=== PATIENT | female | born 1940 | race Caucasian/White ===

== ENCOUNTER 2017-07-23 12:53 | Inpatient (IN) ==
[2017-07-23] MEDS ORDERED: Naloxone 0.4 MG/ML INJ IVP PRN (16:50)
[2017-07-23] MEDS ORDERED: Ondansetron 4 MG/2 ML VIAL IVP PRN (16:50)
[2017-07-23] MEDS ORDERED: *HR* Heparin 5,000 UNIT/ML VIAL IVP ONE (16:53)
[2017-07-23] MEDS ORDERED: *HR* Heparin 5,000 UNIT/ML VIAL IVP PRN (16:53)
--- NOTE | 2017-07-23 17:10 | Internal Med History&Physical ---
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 continue tele monitoring follow up 2D echo Qualifiers: Pulmonary embolism type: other Chronicity: acute Acute cor pulmonale presence: without acute cor pulmonale Qualified Code(s): I26.99 - Other pulmonary embolism without acute cor pulmonale (2) Elevated troponin Current visit: Yes Status: Acute likely secondary to acute PE continue to monitor serial TNI f/u 2D echo (3) Hypertension Current visit: Yes Status: Chronic Initially noted to be hypotensive hold antihypertensive medications at this time closely monitor BP currently asymptomatic Qualifiers: Hypertension type: essential hypertension Qualified Code(s): I10 - Essential (primary) hypertension (4) DVT prophylaxis Current visit: Yes Status: Acute anticoagulated with heparin gtt (5) Morbid obesity with BMI of 40.0-44.9, adult Current visit: Yes Status: Chronic (6) Hypokalemia Current visit: Yes Status: Acute K supplemented continue to monitor electrolytes and replace as needed Internal Medicine - H&P: HPI Chief complaint: transfer from [facility] for shortness of breath, elevated TNI Admitted From: Intrahospital Transfer Plans for Post Hospital Care: Home History of present illness: Ms. Farooq is a 76 year old female with PMH of HTN, HLD who presented to [facility] for evaluation of worsening shortness of breath. Her work up at [facility] was positive for elevated TNI, elevated D-dimer due to which she was transferred to [facility]. She reports of having shortness of breath for a few weeks which abruptly got worst last Tuesday. Reports of having severe exertional dyspnea that changed to dyspnea at rest last night associated with chest pain localized to left breast which prompted her visit to the ER. She denies any history of CHF, DVT, or PE. No recent travel history reported. She received a dose of therapeutic dose lovenox, aspirin, and nitroglycerin TP prior to her transfer to [facility]. Currently she is resting comfortably in bed and saturating well on nasal cannula. Denies any chest pain at this time, however states the pain is intermittent in nature. Denies any cough, fever, or recent URI. Social history: Former smoker (quit 20years ago) Code status: Full code Past Med Surg Social Fam HX - Past Medical History Medical history: arthritis, hyperlipidemia, hypertension, other Psychiatric history: no psych history - Past Surgical History Surgical History: hip replacement, other - Social History Smoking Status: Former smoker Smokeless Tobacco Status: No Alcohol use: none Drug use: none - Family History Mother Adopted: [place]: Eusebia Soto Family Member Ethnicity: Non- Living Status: Age at : 75 Cause of : Brain Tumor Hx Family Cardiac Disorders: No Hx Family Respiratory Disorders: No Hx Family Cancer: No Hx Family GI Disorders: No Hx Family Genitourinary Disorders: No Hx Family Endocrine Disorder: No Hx Family Musculoskeletal Disorders: No Hx Family Neuromuscular Disorders: No Hx Family Neurologic Disorders: Yes (TIA) Hx Family HEENT Disorders: No Hx Family Autoimmune Disorders: No Hx Family Reproductive Disorders: No Hx Family Psychosocial Disorders: No Hx Family Medical Disorders: No Internal Medicine - H&P: Meds Furosemide [Lasix] 40 mg PO DAILY 07/23/17 [History] Lisinopril/Hydrochlorothiazide [Zestoretic 10-12.5 mg Tablet] 1 each PO DAILY [History] Lovastatin [Altoprev] 40 mg PO DAILY 07/23/17 [History] Potassium Chloride [Klor-Con 10] 10 meq PO DAILY 07/23/17 [History] 3 Allergy/AdvReac Type Severity Reaction Status Date / Time No Known Allergies Allergy Verified 07/23/17 10:14 All Systems PM: A 10-system review of systems was performed and is negative for pertinent findings except as documented above in the HPI. - Constitutional Vitals: Temp Pulse Resp BP Pulse Ox 97.4 F L 77 16 84/53 94 07/23/17 14:52 07/23/17 14:52 07/23/17 14:52 07/23/17 14:52 07/23/17 14:52 General appearance: Present: A&O X 3, morbidly obese, no acute distress, answers questions appropriately - Head Head exam: Present: atraumatic, normocephalic - Eye Eye exam: Present: conjuntiva pink, sclera anicteric - Respiratory Respiratory exam: Present: decreased breath sounds. Absent: respiratory distress, wheezes - Cardiovascular Cardiovascular exam: Present: RRR, +S1, +S2. Absent: diastolic murmur, gallop, rubs, systolic murmur - GI/Abdominal GI/Abdominal exam: Present: normal bowel sounds, soft, no peritoneal signs. Absent: distended, tenderness - Extremities Exam Extremities exam: Present: warm, radial pulses palpable and symmetrical. Absent : calf tenderness, cyanotic, pedal edema - Neurological Exam Neurological exam: Present: alert, oriented X3 - Psychiatric Psychiatric exam: Present: normal affect, normal mood
[2017-07-23] MEDS ORDERED: 0.9 % Sodium Chloride 250 ML IVC PRN (17:33)
[2017-07-23 17:53] LABS: Hematocrit 41.8 % (35.3-44.9); Hemoglobin 14.2 g/dL (11.5-15.4); Mean Corpuscular Hemoglobin 32.2 pg (28.0-33.3); Mean Corpuscular Volume 94.8 fL (83.0-100.0); Mean Platelet Volume 10.7 fL (9.4-12.4); Platelet Count 168 K/mcL (140-400); Red Blood Count 4.41 M/mcL (3.82-4.97); Red Cell Distribution Width 12.8 % (11.5-14.5)
[2017-07-23 17:58] LABS: INR 1.2; Prothrombin Time 12.5 Seconds (9.4-12.1)
[2017-07-23 18:00] LABS: Activated Partial Thrombo Time 34.4 Seconds (26.0-36.0)
[2017-07-23] MEDS: Heparin 25,000 UNIT/500 ML D5W 25,000 UNIT/500 ML MLS IVC SCH (18:09)
[2017-07-23] MEDS: *HR* Heparin 5,000 UNIT/ML VIAL IVP PRN (18:12)
[2017-07-23] MEDS: *HR* Morphine 2 MG/ML SYRINGE IVP PRN (18:39)
[2017-07-23] MEDS: *HR* HYDROcodone/Acet 5/325 mg TABLET PO PRN (20:45)
[2017-07-24 00:23] LABS: Basophils # 0.1 K/mcL (0.0-0.2); Basophils % 0.5 %; Eosinophils # 0.2 K/mcL (0.0-0.6); Eosinophils % 1.5 %; Hematocrit 39.3 % (35.3-44.9); Hemoglobin 13.2 g/dL (11.5-15.4); Immature Granulocytes % 0.3 % (0-4); Immature Platelets 5.3 % (1.1-6.1); Lymphocytes # 4.3 K/mcL (0.6-4.6); Lymphocytes % 39.4 %; Mean Corpuscular HGB Conc 33.6 g/dL (31.6-35.5); Mean Corpuscular Hemoglobin 31.8 pg (28.0-33.3); Mean Corpuscular Volume 94.7 fL (83.0-100.0); Mean Platelet Volume 10.6 fL (9.4-12.4); Monocytes # 1.1 K/mcL (0.0-1.3); Monocytes % 9.9 %; Neutrophils # 5.3 K/mcL (1.6-8.9); Platelet Count 157 K/mcL (140-400); Red Blood Count 4.15 M/mcL (3.82-4.97); Red Cell Distribution Width 12.9 % (11.5-14.5); Segmented Neutrophils % 48.4 %
[2017-07-24] MEDS: *HR* HYDROcodone/Acet 5/325 mg TABLET PO PRN ×4 (00:37→20:50)
[2017-07-24 00:38] LABS: Calcium 9.3 mg/dL (8.6-10.8); Chol/HDL Ratio 3.2 (0-4.9); Phosphorous 3.5 mg/dL (2.3-4.7); Potassium 3.3 mEq/L (3.5-4.5)
[2017-07-24 01:00] LABS: Activated Partial Thrombo Time > 360.0 Seconds (26.0-36.0)
[2017-07-24 01:16] LABS: Heparin anti-factor XA UFH 1.82 IU/mL (0.30-0.70)
[2017-07-24] MEDS ORDERED: 0.9 % Sodium Chloride 500 ML IVC SCH (08:00)
[2017-07-24] MEDS ORDERED: Potassium Chloride 20 MEQ, Lidocaine 1% 2 ML in D5% in Water 250 ML IVPB ONE (08:00)
[2017-07-24 08:31] LABS: Activated Partial Thrombo Time 117.2 Seconds (26.0-36.0)
[2017-07-24 08:41] LABS: Heparin anti-factor XA UFH 1.15 IU/mL (0.30-0.70)
--- NOTE | 2017-07-24 10:20 | Internal Med Progress Note ---
Date of Encounter: 07/24/17 Time of Encounter: 09:35 - Assessment and plan (1) SHENG (acute kidney injury) Current Visit: Yes Status: Acute Assessment and plan: Likely secondary to contrast study continue to hold lasix will administer low dose IV fluids (75cc/hr x 550cc) will closely monitor renal function (2) Pulmonary embolism Current Visit: Yes Status: Acute Assessment and plan: CT chest reported bilateral PE with right heart strain awaiting 2D echo currently hemodynamically stable continue heparin gtt pain control O2 supplementation hematology evaluation requested. will obtain b/l LE venous doppler Qualifiers: Pulmonary embolism type: other Chronicity: acute Acute cor pulmonale presence: without acute cor pulmonale Qualified Code(s): I26.99 - Other pulmonary embolism without acute cor pulmonale (3) Elevated troponin Current Visit: Yes Status: Acute Assessment and plan: likely secondary to Acute PE f/u 2D echo (4) Hypertension Current Visit: Yes Status: Chronic Assessment and plan: BP within acceptable range continue home meds Qualifiers: Hypertension type: essential hypertension Qualified Code(s): I10 - Essential (primary) hypertension (5) DVT prophylaxis Current Visit: Yes Status: Acute Assessment and plan: anticoagulated with heparin gtt (6) Morbid obesity with BMI of 40.0-44.9, adult Current Visit: Yes Status: Chronic (7) Hypokalemia Current Visit: Yes Status: Acute Assessment and plan: K supplemented continue to monitor electrolytes and replace as needed - Subjective Interval history: Patient seen and examined with family present at bedside. Patient reports of feeling significantly better compared to previous day. No chest pain reported at this time Vitals within acceptable range will continue heparin gtt today and switch to oral anticoagulant in am awaiting improvement of renal function prior to initiating NOAC. - Constitutional Vitals: Temp Pulse Resp BP Pulse Ox 97.9 F 72 18 136/75 96 07/24/17 04:41 07/24/17 04:41 07/24/17 04:41 07/24/17 04:41 07/24/17 04:41 General appearance: Present: A&O X 3, morbidly obese, no acute distress, answers questions appropriately - Head Head exam: Present: atraumatic, normocephalic - Eye Eye exam: Present: conjuntiva pink, sclera anicteric - Respiratory Respiratory exam: Present: CTAB. Absent: accessory muscle use, rales, rhonchi, wheezes - Cardiovascular Cardiovascular exam: Present: RRR, +S1, +S2. Absent: diastolic murmur, gallop, rubs, systolic murmur - GI/Abdominal GI/Abdominal exam: Present: normal bowel sounds, soft, no peritoneal signs. Absent: distended, tenderness - Extremities Exam Extremities exam: Present: warm, radial pulses palpable and symmetrical. Absent : calf tenderness, cyanotic, pedal edema - Neurological Exam Neurological exam: Present: alert, oriented X3 - Psychiatric Psychiatric exam: Present: normal affect, normal mood Internal Medicine: Result - Labs CBC & Chem 7: 07/24/17 00:15 07/24/17 00:15 Labs: Short CBC 07/23/17 07/24/17 Range/Units 17:40 00:15 WBC 12.0 H 10.9 (4.3-11.1) K/mcL Hgb 14.2 13.2 (11.5-15.4) g/dL Hct 41.8 39.3 (35.3-44.9) % Plt Count 168 157 (140-400) K/mcL Neutrophils # 5.3 (1.6-8.9) K/mcL BMP 07/24/17 00:15 Sodium 140 Potassium 3.3 L Chloride 103 Carbon Dioxide 29 BUN 22 H Creatinine 1.17 H Glucose 124 H Calcium 9.3 Cardiac Enzymes 07/23/17 07/23/17 Range/Units 17:40 22:20 Troponin I 0.56 H* 0.54 H* (0-0.03) ng/mL - ABG Interpretation ABG results: PT/INR, D-dimer PT 12.5 Seconds (9.4-12.1) H 07/23/17 17:40 - Impressions Impressions Chest CTA 07/23/17 16:52 IMPRESSION: 1. Bilateral pulmonary embolic disease including distal main right pulmonary emboli. Evidence of right heart strain with flattening of the interventricular septum and increased size of the right ventricle. 2. No acute pulmonary findings. 3. Moderate atherosclerotic change in the aorta and coronary circulation. Findings called to Dr. Bazan on 07/23/2017 at 6:10 p.m. D/ / 07/23/2017 18:14:38 Ronak Hardin MD / rosita Interpreting Provider: Ronak Hardin MD Consult Discharge Plan - Plan Referrals: Lee Allen MD [Primary Care Provider] -
[2017-07-24] MEDS ORDERED: Perflutren Lipid Microsphere 1.3 ML in 0.9 % Sodium Chloride 8.7 ML IVP ONE (16:14)
[2017-07-24] MEDS: Heparin 25,000 UNIT/500 ML D5W 25,000 UNIT/500 ML MLS IVC SCH (16:24)
[2017-07-24] MEDS: *HR* Heparin 5,000 UNIT/ML VIAL IVP PRN (21:02)
[2017-07-25] MEDS: *HR* HYDROcodone/Acet 5/325 mg TABLET PO PRN ×2 (01:42→20:59)
[2017-07-25 03:31] LABS: Basophils # 0.1 K/mcL (0.0-0.2); Basophils % 0.7 %; Eosinophils # 0.2 K/mcL (0.0-0.6); Eosinophils % 2.4 %; Hematocrit 36.4 % (35.3-44.9); Immature Granulocytes % 0.5 % (0-4); Lymphocytes # 3.7 K/mcL (0.6-4.6); Lymphocytes % 39.9 %; Mean Corpuscular Hemoglobin 31.7 pg (28.0-33.3); Mean Corpuscular Volume 96.3 fL (83.0-100.0); Mean Platelet Volume 11.1 fL (9.4-12.4); Monocytes % 10.4 %; Neutrophils # 4.3 K/mcL (1.6-8.9); Platelet Count 139 K/mcL (140-400); Red Blood Count 3.78 M/mcL (3.82-4.97); Red Cell Distribution Width 13.2 % (11.5-14.5); Segmented Neutrophils % 46.1 %
[2017-07-25 03:46] LABS: BUN/Creatinine Ratio 22 (6-26); Blood Urea Nitrogen 23 mg/dL (7-20); Calcium 8.4 mg/dL (8.6-10.8); Carbon Dioxide 29 mEq/L (19-29); Chloride 106 mEq/L (98-109); Glucose 120 mg/dL (70-99); Magnesium 1.8 mg/dL (1.6-2.6); Osmolality,Calculated 297 (280-300); Phosphorous 3.5 mg/dL (2.3-4.7); Potassium 3.2 mEq/L (3.5-4.5); Sodium 141 mEq/L (136-145); eGFR For African Americans > 60 (> 60); eGFR For Non-African Americans 52 (> 60)
[2017-07-25 03:58] LABS: Activated Partial Thrombo Time > 360.0 Seconds (26.0-36.0)
[2017-07-25 04:11] LABS: Heparin anti-factor XA UFH 1.47 IU/mL (0.30-0.70)
[2017-07-25] MEDS: *HR* Morphine 2 MG/ML SYRINGE IVP PRN (04:17)
--- NOTE | 2017-07-25 07:35 | Oncology Inp Consult Note ---
Date of Encounter: 07/25/17 Time of Encounter: 07:00 Assessment and Plan (1) Pulmonary embolism Status: Acute Assessment and plan: Ms. 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 She is placed on a heparin drip and clinically she is responding. Regarding long-term anticoagulation, given her obesity, warfarin would be our best option. I placed her on 5 mg once daily starting tonight. I did explain to the patient that if she feels well, we can transition her to Lovenox 1 mg/kg twice a day (120 mg bid) during her transition. I would recommend she established care with the Coumadin clinic. I would recommend a minimum of 6 months of anticoagulation. Given her prior event, one could consider lifelong therapy. Thrombophilia testing is not indicated to current. Goal INR is 2-3 I will establish care in my office in 3-4 weeks for follow-up. We will otherwise sign off. Do not hesitate to call with concerns or questions. Qualifiers: Pulmonary embolism type: other Chronicity: acute Acute cor pulmonale presence: without acute cor pulmonale Qualified Code(s): I26.99 - Other pulmonary embolism without acute cor pulmonale - Data of Consult Requesting Physician: Karli Bazan MD Primary Care Provider: Lee Allen MD - Consult Narrative Reason for consult: New PE History of present illness: Ms. Farooq is a 76 year old female with a prior history of right leg DVT following total hip arthroplasty. This occurred while on Coumadin. She presented to the [place] ER with acute onset chest pain and severe dyspnea on exertion. CT imaging 07/23/2017 revealed bilateral pulmonary embolism but no other significant finding. She is transferred to the [facility] where she has been placed on a heparin drip and a consult has been placed. Regarding her history of thrombosis, she had one event following a total hip arthroplasty. This sounds as though it occurred while on Coumadin initially. She does have a sister who had a history of DVT. No offspring with history of DVT or premature loss that she can recall. She tolerated Coumadin well. She has had recent mammography but has not had a colonoscopy for over 10 years. She currently denies any bleeding symptoms epistaxis, hemoptysis, hematemesis or melena. She has not been moving around much since being hospital twice. She does have constipation. Past Med Surg Social Fam HX - Past Medical History Medical history: arthritis, hyperlipidemia, hypertension, other Psychiatric history: no psych history - Past Surgical History Surgical History: hip replacement, other - Social History Smoking Status: Former smoker Smokeless Tobacco Status: No Alcohol use: none Drug use: none - Family History Mother Adopted: [place]: Eusebia Soto Family Member Ethnicity: Non- Living Status: Age at : 75 Cause of : Brain Tumor Hx Family Cardiac Disorders: No Hx Family Respiratory Disorders: No Hx Family Cancer: No Hx Family GI Disorders: No Hx Family Genitourinary Disorders: No Hx Family Endocrine Disorder: No Hx Family Musculoskeletal Disorders: No Hx Family Neuromuscular Disorders: No Hx Family Neurologic Disorders: Yes (TIA) Hx Family HEENT Disorders: No Hx Family Autoimmune Disorders: No Hx Family Reproductive Disorders: No Hx Family Psychosocial Disorders: No Hx Family Medical Disorders: No Medications and Allergies Furosemide [Lasix] 40 mg PO DAILY 07/23/17 [History] Lisinopril/Hydrochlorothiazide [Zestoretic 10-12.5 mg Tablet] 1 tab PO DAILY [History] Potassium Chloride [Klor-Con 10] 10 meq PO DAILY 07/23/17 [History] Lovastatin 40 mg PO HS 07/24/17 [History] Naproxen Sodium [Aleve] 220 mg PO Q8H PRN 07/24/17 [History] 3 Allergy/AdvReac Type Severity Reaction Status Date / Time No Known Allergies Allergy Verified 07/24/17 15:36 All systems: reviewed and no additional remarkable complaints except as stated Constitutional: Present: as per HPI Eyes: Present: as per HPI Ears: Present: as per HPI Nose, mouth and throat: Present: as per HPI Cardiovascular: Present: chest pain with activity, edema Respiratory: Present: dyspnea on exertion Gastrointestinal: Present: as per HPI Musculoskeletal: Present: as per HPI Integumentary: Present: as per HPI Neurological: Present: as per HPI Psychiatric: Present: as per HPI Oncology - Exam - Constitutional Vitals: Temp Pulse Resp BP Pulse Ox 97.3 F L 65 18 131/63 98 07/25/17 07:10 07/25/17 07:10 07/25/17 07:10 07/25/17 07:10 07/25/17 07:10 General appearance: cooperative, obese - Head Head exam: Present: atraumatic, normal inspection, normocephalic - Eye Eye exam: Present: EOMI, normal appearance, conjuntiva pink, sclera anicteric - ENT ENT exam: Present: mucous membranes moist, normal exam - Neck Neck exam: Present: full ROM, normal inspection - Respiratory Respiratory exam: Present: CTAB - Cardiovascular Cardiovascular exam: Present: RRR - GI/Abdominal GI/Abdominal exam: Present: normal bowel sounds, soft - Extremities Exam Extremities exam: Present: pedal edema - Back Exam Back exam: Present: normal inspection - Neurological Exam Neurological exam: Present: alert, CN II-XII intact, oriented X3 Oncology - Results Labs: Short CBC 07/25/17 Range/Units 03:07 WBC 9.2 (4.3-11.1) K/mcL Hgb 12.0 (11.5-15.4) g/dL Hct 36.4 (35.3-44.9) % Plt Count 139 L (140-400) K/mcL Neutrophils # 4.3 (1.6-8.9) K/mcL BMP 07/25/17 03:07 Sodium 141 Potassium 3.2 L Chloride 106 Carbon Dioxide 29 BUN 23 H Creatinine 1.03 Glucose 120 H Calcium 8.4 L CTA OF THE CHEST 07/23/2017 5:30 pm FINDINGS: Pulmonary Arteries: Pulmonary arteries are adequately opacified for evaluation. Extensive bilateral pulmonary embolic disease. On the right, emboli are present in the distal main pulmonary artery extending into the proximal segmental branches in the lower and upper lobes. On the left, emboli are present in the proximal segmental branches. There is CT evidence of right heart strain with flattening of the interventricular septum and increased size of the right ventricle compared to the left. Main pulmonary artery is normal in caliber. Mediastinum: The thoracic aorta is normal in course and caliber with moderate diffuse atherosclerotic plaque. The heart is not enlarged. Atherosclerotic calcification in the coronary circulation. No pericardial effusion. No pathologic hilar or mediastinal adenopathy. Lungs/Pleura: No acute pulmonary infiltrate. Some dependent atelectasis in the right posterior costophrenic sulcus. No consolidation or edema. No pleural fluid or pneumothorax. The central airways are patent. Upper Abdomen: Limited images of the upper abdomen are unremarkable. Soft Tissues/Bones: No acute bone or soft tissue abnormality. CT/CT angio chest IMPRESSION: 1. Bilateral pulmonary embolic disease including distal main right pulmonary emboli. Evidence of right heart strain with flattening of the interventricular septum and increased size of the right ventricle. 2. No acute pulmonary findings. 3. Moderate atherosclerotic change in the aorta and coronary circulation. Findings called to Dr. Bazan on 07/23/2017 at 6:10 p.m. Consult Discharge Plan - Plan Referrals: Lee Allen MD [Primary Care Provider] -
[2017-07-25] MEDS: Heparin 25,000 UNIT/500 ML D5W 25,000 UNIT/500 ML MLS IVC SCH (13:07)
[2017-07-25] MEDS ORDERED: GuaiFENesin Liq 200 MG/10 ML UDC PO PRN (15:26)
--- NOTE | 2017-07-25 17:31 | Internal Med Progress Note ---
<NataleePramod preciado - Last Filed: 07/25/17 17:28> Date of Encounter: 07/25/17 Time of Encounter: 17:28 - Assessment and plan (1) Pulmonary embolism Current Visit: Yes Status: Acute Assessment and plan: Submassive with evidence of right heart strain. Hemodynamically stable. Patient is currently on heparin bridging to Coumadin, possible transition to Lovenox tomorrow so the patient can complete bridging. Patient is off supplemental oxygen and does not desaturate with activity. Qualifiers: Pulmonary embolism type: other Chronicity: acute Acute cor pulmonale presence: without acute cor pulmonale Qualified Code(s): I26.99 - Other pulmonary embolism without acute cor pulmonale (2) Hypertension Current Visit: Yes Status: Chronic Assessment and plan: Stable. Continue home medications, restart home Lasix. Qualifiers: Hypertension type: essential hypertension Qualified Code(s): I10 - Essential (primary) hypertension (3) SHENG (acute kidney injury) Current Visit: Yes Status: Acute Assessment and plan: Likely multifactorial due to dehydration as well as the contrast. Kidney function is returned to baseline. Patient has good urine output. (4) Hypokalemia Current Visit: Yes Status: Acute Assessment and plan: 3.2 today. We will restart home potassium 10 mEq daily and give a one-time dose of 40 mEq this evening. - Subjective Interval history: Patient seen and examined at bedside. She has no complaints at this time. She reports chronic knee pain that is unchanged. She denies chest pain, shortness of breath, hemoptysis. - Constitutional Vitals: Temp Pulse Resp BP Pulse Ox 98.3 F 79 18 148/75 94 07/25/17 15:02 07/25/17 15:02 07/25/17 15:02 07/25/17 15:02 07/25/17 15:02 General appearance: Present: A&O X 3, morbidly obese, no acute distress, answers questions appropriately - Respiratory Respiratory exam: Present: decreased breath sounds. Absent: rales, respiratory distress, rhonchi, wheezes, tachypnea - Cardiovascular Cardiovascular exam: Present: RRR. Absent: gallop, rubs, systolic murmur - GI/Abdominal GI/Abdominal exam: Present: normal bowel sounds, soft. Absent: distended, tenderness - Extremities Exam Extremities exam: Present: pedal edema (2+), warm. Absent: tenderness - Neurological Exam Neurological exam: Present: alert, CN II-XII intact, oriented X3, no focal deficits Internal Medicine: Result - Labs CBC & Chem 7: 07/25/17 03:07 07/25/17 03:07 Labs: Short CBC 07/25/17 Range/Units 03:07 WBC 9.2 (4.3-11.1) K/mcL Hgb 12.0 (11.5-15.4) g/dL Hct 36.4 (35.3-44.9) % Plt Count 139 L (140-400) K/mcL Neutrophils # 4.3 (1.6-8.9) K/mcL BMP 07/25/17 03:07 Sodium 141 Potassium 3.2 L Chloride 106 Carbon Dioxide 29 BUN 23 H Creatinine 1.03 Glucose 120 H Calcium 8.4 L - ABG Interpretation ABG results: PT/INR, D-dimer PT 12.5 Seconds (9.4-12.1) H 07/23/17 17:40 - Impressions Impressions Echocardiogram 07/24/17 16:54 Impressions: Technically challenging study with suboptimal windows. LV systolic function appears normal in limited images provided - even with use of Definity, multiple wall segments could not be well visualized. Mild left ventricular diastolic dysfunction. RV size is normal. RV function is not well evaluated on this study - the basal segments in the apical views demonstrate normal function. Function of the mid to distal villegas are not well evaluated. Suboptimal subcostal view. No significant valvular dysfunction. Lack of significant TR gradient to estimate RVSP. Mild elevation of RA pressures - IVC is dilated with normal respiratory collapse. Left Ventricular Wall Motion: Rest Echo Findings The apex, apical inferior, mid inferior, basal inferior, apical anterior, mid anterior, basal anterior, apical septal, mid inferior septal, basal inferior septal, apical lateral, mid anterior lateral and basal anterior lateral villegas were not visualized. All other wall segments showed normal motion. Findings: Study Quality * Technically sub-optimal due to body habitus. ECG Findings * Normal sinus rhythm. Left Ventricle * Mild left ventricular diastolic dysfunction. * Definity echo contrast was used. * Unable to evaluate segmental wall motion due to technical quality. Right Ventricle * RV size is normal. Function is not well evaluated. Left Atrium * Normal left atrial size. Right Atrium * Normal right atrial size. Aortic Valve * Aortic valve not well visualized. * No aortic regurgitation. * No aortic stenosis. Mitral Valve * Mitral valve not well visualized. * No mitral regurgitation. * No mitral stenosis. Tricuspid Valve * Tricuspid valve not well visualized. * Trace tricuspid regurgitation. * Estimated RA pressure is 8 mmHg. Pulmonic Valve * Pulmonic valve is not well visualized. * No pulmonic stenosis. * No pulmonic regurgitation. Pulmonary Artery * Pulmonary artery not well visualized. Aorta * Not well visualized. Pericardium * There is no pericardial effusion present. Interatrial Septum * Interatrial septum not well evaluated. IVC * The IVC is dilated. * > 50% respiratory change - VTE Reasons for not Prescribing Prophylaxis: Not indicated-Anticoagulated or INR therapeutic Consult Discharge Plan - Plan Referrals: Lee Allen MD [Primary Care Provider] - 08/01/17 3:30 pm () Prescriptions: Enoxaparin [Lovenox] 120 mg SQ Q12HR #10 syr <Shiv Lizarraga - Last Filed: 07/25/17 18:14> Date of Encounter: 07/25/17 - Assessment and plan (1) Pulmonary embolism Current Visit: Yes Status: Acute Qualifiers: Pulmonary embolism type: other Chronicity: acute Acute cor pulmonale presence: without acute cor pulmonale Qualified Code(s): I26.99 - Other pulmonary embolism without acute cor pulmonale (2) Deep venous thrombosis of right popliteal vein Current Visit: Yes Status: Acute Qualifiers: Chronicity: acute Qualified Code(s): I82.431 - Acute embolism and thrombosis of right popliteal vein (3) Demand ischemia Current Visit: Yes Status: Acute Assessment and plan: Due to submassive PEs (4) Hypertension Current Visit: Yes Status: Chronic Qualifiers: Hypertension type: essential hypertension Qualified Code(s): I10 - Essential (primary) hypertension (5) Morbid obesity with BMI of 40.0-44.9, adult Current Visit: Yes Status: Chronic - Constitutional Vitals: Temp Pulse Resp BP Pulse Ox 98.3 F 79 18 148/75 94 07/25/17 15:02 07/25/17 15:02 07/25/17 15:02 07/25/17 15:02 07/25/17 15:02 Internal Medicine: Result - Labs CBC & Chem 7: 07/25/17 03:07 07/25/17 03:07 Labs: Short CBC 07/25/17 Range/Units 03:07 WBC 9.2 (4.3-11.1) K/mcL Hgb 12.0 (11.5-15.4) g/dL Hct 36.4 (35.3-44.9) % Plt Count 139 L (140-400) K/mcL Neutrophils # 4.3 (1.6-8.9) K/mcL BMP 07/25/17 03:07 Sodium 141 Potassium 3.2 L Chloride 106 Carbon Dioxide 29 BUN 23 H Creatinine 1.03 Glucose 120 H Calcium 8.4 L - ABG Interpretation ABG results: PT/INR, D-dimer PT 12.5 Seconds (9.4-12.1) H 07/23/17 17:40 - Attending Attestation I examined this patient and my medical decision-making was reviewed with the Resident Physician on 07/25/17. I agree with the documented findings, disposition and treatment plan as described except to the extent set forth below. Ms Farooq is currently admitted with bilateral submassive PEs and R pop DVT. She remains moderate to high risk due to potential for worsening respiratory status. Ms Farooq is feeling OK. She is off oxygen at rest. Concerned about needing oxygen when she goes (does not). Discussed possible d/c with Lovenox/coumadin. Pedro checking Lovenox. No fever or chills. Daughter at bedside. Pt to go on coumadin as well. Exam Alert. Comfortable Heart reg No wheeze Abd soft OA noted. Mucus membranes dry I/P 1. BL PE - currently on heparin drip. To start coumadin tonight. Pedro checking Lovenox for possible discharge on this med with coumadin. 2. R pop DVT 3. OA Further diagnoses and plan as above.
[2017-07-25] MEDS ORDERED: *HR* Warfarin 5 MG TABLET PO SCH ×2 (18:00)
[2017-07-25] MEDS ORDERED: Warfarin perPT PO PRN (18:00)
[2017-07-26] MEDS: *HR* HYDROcodone/Acet 5/325 mg TABLET PO PRN (01:15)
[2017-07-26 05:31] LABS: INR 1.1; Prothrombin Time 12.3 Seconds (9.4-12.1)
[2017-07-26] MEDS: Furosemide 40 MG TABLET PO SCH (08:38)
--- NOTE | 2017-07-26 08:40 | Internal Med Progress Note ---
<Enzo Pena - Last Filed: 07/26/17 10:03> Date of Encounter: 07/26/17 Time of Encounter: 08:38 - Assessment and plan (1) Pulmonary embolism Current Visit: Yes Status: Acute Assessment and plan: Patient was admitted with shortness of breath found to have bilateral pulmonary embolisms on CTA with enlarged pulmonary artery, she was started on heparin drip and demonstrated significant improvement during her inpatient stay. On admission patient had elevation of troponin 2.54 likely secondary to cardiac strain with bilateral pulmonary embolisms. Echocardiogram demonstrated left ventricular systolic function appears normal and limited images, mild left ventricle diastolic dysfunction, right ventricular size is normal. Right function is not well evaluated on this study. No significant valvular dysfunction. Lack of significant TR gradient to estimate RVSP. Doppler bilateral lower extremities demonstrates clot in right popliteal vein. Plan: - Start Lovenox 1 mg/kg every 12 hours, approved by insurance - Discontinue heparin drip - Patient will be transitioned to Coumadin, pharmacy to dose and follow-up with Coumadin clinic in the outpatient setting. - Follow up with primary care provider in the outpatient setting. Qualifiers: Pulmonary embolism type: other Chronicity: acute Acute cor pulmonale presence: without acute cor pulmonale Qualified Code(s): I26.99 - Other pulmonary embolism without acute cor pulmonale (2) Hypertension Current Visit: Yes Status: Chronic Assessment and plan: Stable. Continue home medications, restart home Lasix. Qualifiers: Hypertension type: essential hypertension Qualified Code(s): I10 - Essential (primary) hypertension (3) Hypokalemia Current Visit: Yes Status: Acute Assessment and plan: 3.2 yesterday. Continue home potassium 10 mEq daily Plan: - Recheck potassium with today's labs (4) SHENG (acute kidney injury) Current Visit: Yes Status: Acute Assessment and plan: Acute kidney injury improving since admission. GFR greater than 60 yesterday we will recheck with a.m. labs. - Subjective Interval history: Ms. Farooq 76-year-old female seen and evaluated patient bedside this morning. She is alert awake interactive in no acute distress. She does say that she gets shortness of breath with walking and has anxiety that there is a risk this could get worse if she went home. While at rest she does not have any shortness of breath denies any chest pain, palpitations, nausea vomiting diarrhea headaches blurry vision or any other concerning symptoms. She states that she has chronic edema in her bilateral lower extremities which is not changed from her baseline. - Constitutional Vitals: Temp Pulse Resp BP Pulse Ox 98.2 F 73 18 129/67 94 07/26/17 04:15 07/26/17 07:29 07/26/17 07:29 07/26/17 07:29 07/26/17 07:29 General appearance: Present: A&O X 3, morbidly obese, no acute distress, answers questions appropriately Exam: General: Patient alert, awake, oriented 3, interactive, in no acute distress HEENT: Normocephalic, atraumatic, pupils equal reactive to light, nasal cavity patent and open septum median position, oral mucosa moist, uvula midline, neck supple trachea midline no palpable lymphadenopathy, no thyromegaly. Chest: Symmetric bilateral correlating with respiratory effort, effort nonlabored. Cardiac: Regular rate and rhythm, positive S1 and S2. no bruits appreciated bilateral carotids, Radial pulses 2+ bilateral, posterior tibial and dorsal pedal pulses 2+ bilateral. Respiratory: Clear to auscultation all lung burkett Abdomen: Soft, nontender, positive bowel sounds, no palpable masses appreciated on examination Extremities: Symmetric bilateral, bilateral lower extremities with 1+ edema, patient moving all 4 extremities spontaneously. Neurologic: No focal deficits appreciated on examination. Face symmetric, muscle strength symmetric bilateral upper and lower extremities. Internal Medicine: Result - Labs CBC & Chem 7: 07/25/17 03:07 07/25/17 03:07 - ABG Interpretation ABG results: PT/INR, D-dimer PT 12.3 Seconds (9.4-12.1) H 07/26/17 05:05 - VTE Reasons for not Prescribing Prophylaxis: Not indicated-Anticoagulated or INR therapeutic Consult Discharge Plan - Plan Additional Instructions: Coagulation Clinic Instructions for Tuesday. Bring Warfarin bottle and list of home medication list including any vitamins. Bring Photo ID and Insurance information. Appointment should last 45 minutes. Office is located [facility] the [facility] of [facility]. Referrals: ANTICOAGULATION, CLINIC [Other] - 08/01/17 12:00 pm Lee Allen MD [Primary Care Provider] - 08/01/17 3:30 pm () Prescriptions: Enoxaparin [Lovenox] 120 mg SQ Q12HR #10 syr <Beni,Karli - Last Filed: 07/26/17 17:46> Date of Encounter: 07/26/17 - Assessment and plan (1) SHENG (acute kidney injury) Current Visit: Yes Status: Acute (2) Pulmonary embolism Current Visit: Yes Status: Acute Qualifiers: Pulmonary embolism type: other Chronicity: acute Acute cor pulmonale presence: without acute cor pulmonale Qualified Code(s): I26.99 - Other pulmonary embolism without acute cor pulmonale (3) Elevated troponin Current Visit: Yes Status: Acute (4) Hypertension Current Visit: Yes Status: Chronic Qualifiers: Hypertension type: essential hypertension Qualified Code(s): I10 - Essential (primary) hypertension (5) DVT prophylaxis Current Visit: Yes Status: Acute (6) Morbid obesity with BMI of 40.0-44.9, adult Current Visit: Yes Status: Chronic (7) Hypokalemia Current Visit: Yes Status: Acute - Constitutional Vitals: Temp Pulse Resp BP Pulse Ox 97.6 F 79 20 143/69 96 07/26/17 15:19 07/26/17 15:19 07/26/17 15:19 07/26/17 15:19 07/26/17 15:19 Internal Medicine: Result - Labs CBC & Chem 7: 07/26/17 11:15 07/26/17 11:15 Labs: Short CBC 07/26/17 Range/Units 11:15 WBC 9.4 (4.3-11.1) K/mcL Hgb 12.8 (11.5-15.4) g/dL Hct 38.8 (35.3-44.9) % Plt Count 172 (140-400) K/mcL Neutrophils # 5.3 (1.6-8.9) K/mcL BMP 07/26/17 11:15 Sodium 139 Potassium 3.7 Chloride 105 Carbon Dioxide 26 BUN 18 Creatinine 0.86 Glucose 102 H Calcium 9.2 - ABG Interpretation ABG results: PT/INR, D-dimer PT 12.3 Seconds (9.4-12.1) H 07/26/17 05:05 - Attending Attestation Patient is a 76-year-old female admitted for acute respiratory distress secondary to bilateral PE. She has been started on Coumadin bridging with heparin for anticoagulation. Patient's SHENG has resolved and she is to be started on Lovenox therapeutic dose twice a day instead of heparin today. Patient is hesitant to be discharged to home until her INR is therapeutic. Extensive counseling was provided to the patient and the family in regards to home management with Coumadin and Lovenox versus hospital stay. Patient willing to be discharged to home with Lovenox in a.m. Continue to monitor INR daily. Coumadin clinic appointment to be set up for Tuesday. Patient's labs and vitals reviewed. Hypophosphatemia noted, phosphorus supplemented. Patient was independently seen and examined with family present at bedside. 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 Case discussed with resident physician Edgar Pena, I agree with his documented findings, assessment, and plan, except as listed above.
[2017-07-26] MEDS: Heparin 25,000 UNIT/500 ML D5W 25,000 UNIT/500 ML MLS IVC SCH ×2 (09:42→09:45)
[2017-07-26 11:31] LABS: Basophils # 0.1 K/mcL (0.0-0.2); Basophils % 0.6 %; Eosinophils # 0.2 K/mcL (0.0-0.6); Eosinophils % 2.1 %; Hematocrit 38.8 % (35.3-44.9); Hemoglobin 12.8 g/dL (11.5-15.4); Immature Granulocytes % 0.3 % (0-4); Lymphocytes # 2.7 K/mcL (0.6-4.6); Lymphocytes % 28.1 %; Mean Corpuscular Hemoglobin 31.8 pg (28.0-33.3); Mean Corpuscular Volume 96.3 fL (83.0-100.0); Mean Platelet Volume 10.8 fL (9.4-12.4); Monocytes # 1.2 K/mcL (0.0-1.3); Monocytes % 12.3 %; Neutrophils # 5.3 K/mcL (1.6-8.9); Platelet Count 172 K/mcL (140-400); Red Blood Count 4.03 M/mcL (3.82-4.97); Red Cell Distribution Width 13.3 % (11.5-14.5); Segmented Neutrophils % 56.6 %
[2017-07-26 11:43] LABS: BUN/Creatinine Ratio 21 (6-26); Blood Urea Nitrogen 18 mg/dL (7-20); Calcium 9.2 mg/dL (8.6-10.8); Carbon Dioxide 26 mEq/L (19-29); Chloride 105 mEq/L (98-109); Glucose 102 mg/dL (70-99); Magnesium 1.8 mg/dL (1.6-2.6); Osmolality,Calculated 290 (280-300); Phosphorous 2.2 mg/dL (2.3-4.7); Potassium 3.7 mEq/L (3.5-4.5); Sodium 139 mEq/L (136-145); eGFR For African Americans > 60 (> 60); eGFR For Non-African Americans > 60 (> 60)
[2017-07-26] MEDS: *HR* Enoxaparin 120 MG/0.8 ML SYRINGE SQ SCH ×2 (12:32→18:08)
[2017-07-26] MEDS ORDERED: *HR* Enoxaparin 120 MG/0.8 ML SYRINGE SQ SCH (18:00)
[2017-07-26] MEDS ORDERED: *HR* Warfarin 5 MG TABLET PO SCH (18:00)
[2017-07-26] MEDS: Sennosides/Docusate Sodium TABLET PO SCH (20:12)
[2017-07-27 04:00] LABS: INR 1.3; Prothrombin Time 13.6 Seconds (9.4-12.1)
[2017-07-27] MEDS: *HR* Enoxaparin 120 MG/0.8 ML SYRINGE SQ SCH (05:35)
[2017-07-27 06:31] VITALS: BP 112/58
[2017-07-27] MEDS: Sennosides/Docusate Sodium TABLET PO SCH (07:51)
[2017-07-27] MEDS: Furosemide 40 MG TABLET PO SCH (07:51)
--- NOTE | 2017-07-27 10:52 | Discharge Summary ---
Addendum entered and electronically signed by Pramod Del Rio, DO 07/27/17 13:46: Patient underwent 6 minute walk test and found to be hypoxic with a drop in her oxygen saturation to 86% while walking. The patient is qualified for home oxygen, this will be set up. Original Note: <Pramod Del Rio - Last Filed: 07/27/17 13:34> Date of Encounter: 07/27/17 Time of Encounter: 10:50 - Discharge Diagnosis (1) Pulmonary embolism Priority: Primary Status: Acute Qualifiers: Pulmonary embolism type: other Chronicity: acute Acute cor pulmonale presence: without acute cor pulmonale Qualified Code(s): I26.99 - Other pulmonary embolism without acute cor pulmonale (2) Hypertension Priority: Secondary Status: Chronic Qualifiers: Hypertension type: essential hypertension Qualified Code(s): I10 - Essential (primary) hypertension (3) SHENG (acute kidney injury) Priority: Secondary Status: Resolved (4) Hypokalemia Priority: Secondary Status: Resolved - Discharge Medications Prescriptions: Enoxaparin [Lovenox] 120 mg SQ Q12HR #10 syr HYDROcodone/Acet 5/325 mg [[place] 5-325 mg] 1 tab PO Q6H PRN #20 tablet PRN Reason: Pain Warfarin [Coumadin] 5 mg PO 1800 #30 tablet Home Medications: Furosemide [Lasix] 40 mg PO DAILY 07/23/17 [History] Lisinopril/Hydrochlorothiazide [Zestoretic 10-12.5 mg Tablet] 1 tab PO DAILY [History] Potassium Chloride [Klor-Con 10] 10 meq PO DAILY 07/23/17 [History] Lovastatin 40 mg PO HS 07/24/17 [History] Naproxen Sodium [Aleve] 220 mg PO Q8H PRN 07/24/17 [History] Enoxaparin [Lovenox] 120 mg SQ Q12HR #10 syr 07/25/17 [Rx] Enoxaparin [Lovenox] 120 mg SQ Q12HR syringe 07/27/17 [Rx] HYDROcodone/Acet 5/325 mg [[place] 5-325 mg] 1 tab PO Q6H PRN #20 tablet 07/27/17 [Rx] Warfarin [Coumadin] 5 mg PO 1800 #30 tablet 07/27/17 [Rx] Allergies/Adverse Reactions: 3 Allergy/AdvReac Type Severity Reaction Status Date / Time No Known Allergies Allergy Verified 07/24/17 15:36 Procedures/tests Complete & Pending: Procedures Performed prior 72 hours Category Date Time Status EV echocardiogram w enhance Stat Y 07/24/17 16:54 Completed Venous Doppler [EV venous imaging LE BI] Stat Y 07/24/17 10:28 Completed Date of admission: 07/25/17 11:26 Primary care physician: Lee Allen MD Consults: 07/24/17 08:01 Consult to Oncology Hematology [CONS] Routine Consulting Provider: Ron Osei Reason for Consult: acute PE Call Completed: Yes Discharging clinician: Pramod Del Rio Anticipated date of discharge: 07/27/17 - Patient Status Disposition: Home, Self-Care Condition: Good Functional capacity at discharge: uses cane/walker Overall status at discharge: patient is progressing back to baseline - Ambulatory Orders Ambulatory Orders: Prothrombin Time INR [COAG] Time Frame: 07/29/17, Facility: [facility], Location: Lab - Discharge Instructions Instructions: Hydrocodone/Acetaminophen (By mouth), Warfarin (By mouth), Enoxaparin (Injection), Pulmonary Embolism (DC), Peripheral Vascular Disorders ( DC), Chronic Hypertension (DC) Follow Up With: ANTICOAGULATION, CLINIC [Other] - 08/01/17 12:00 pm Lee Allen MD [Primary Care Provider] - 08/01/17 3:30 pm () Additional Instructions: Coagulation Clinic Instructions for Tuesday: Bring Warfarin bottle and list of home medication list including any vitamins. Bring Photo ID and Insurance information. Appointment should last 45 minutes. Office is [facility]. Please have your blood test performed Tuesday morning. Please take warfarin 5mg daily and lovenox injections twice a day until instructed otherwise. Please follow up with the Coumadin clinic as scheduled on Tuesday at noon. Please follow-up with your primary care physician, Dr. Allen, as scheduled. Please resume your home medications. Please wear oxygen with activity. Please return for any new or worsening symptoms. - Diet and Activity Activity: increase activity as tolerated (Use your cane while walking), other ( wear oxygen with activity) Diet: advance to your usual diet Interval History: Patient seen and examined at bedside. Patient states that she feels good today. She does report a mild pain on her left chest wall, she thinks this is related she slept. The pain is new and has not been present since admission. She reports it is very mild and improving. Otherwise she reports no chest pain , shortness of breath, cough, hemoptysis. Hospital course: Ms. Farooq is a 76 year old female with history of hypertension who presented with shortness of breath. Patient also had some mild hypoxia and tachycardia associated d-dimer performed in the emergency department that was positive so the patient underwent CT angiogram of the chest that revealed bilateral pulmonary embolisms. Patient had troponin elevation and echo showed evidence of right heart strain. Patient was hemodynamically stable throughout her stay. Patient was placed on a heparin infusion and warfarin was initiated. Patient was then transitioned to Lovenox for bridging therapy. Patient underwent 6 minute walk test and qualified for oxygen with activity. Patient will be discharged home in stable condition with close follow-up monitoring her INR. She has also been set up with home oxygen. - Time Spent with Patient Total time spent providing and/or coordinating discharge services: 45 minutes - Constitutional Vitals: Temp Pulse Resp BP Pulse Ox 97.9 F 68 15 112/58 93 07/27/17 06:27 07/27/17 06:27 07/27/17 06:27 07/27/17 06:27 07/27/17 06:27 General appearance: Present: A&O X 3, morbidly obese, no acute distress, answers questions appropriately - Respiratory Respiratory exam: Present: CTAB. Absent: rales, rhonchi, wheezes - Cardiovascular Cardiovascular exam: Present: RRR. Absent: gallop, rubs, systolic murmur - GI/Abdominal GI/Abdominal exam: Present: normal bowel sounds, soft. Absent: distended, tenderness - Extremities Exam Extremities exam: Present: pedal edema (trace), warm. Absent: tenderness - Neurological Exam Neurological exam: Present: alert, CN II-XII intact, oriented X3, no focal deficits - VTE Reasons for not Prescribing Prophylaxis: Not indicated-Anticoagulated or INR therapeutic <Karli Bazan - Last Filed: 07/27/17 18:07> Date of Encounter: 07/27/17 - Discharge Diagnosis (1) SHENG (acute kidney injury) Status: Resolved (2) Pulmonary embolism Status: Acute Qualifiers: Pulmonary embolism type: other Chronicity: acute Acute cor pulmonale presence: without acute cor pulmonale Qualified Code(s): I26.99 - Other pulmonary embolism without acute cor pulmonale (3) Elevated troponin Status: Acute (4) Hypertension Status: Chronic Qualifiers: Hypertension type: essential hypertension Qualified Code(s): I10 - Essential (primary) hypertension (5) DVT prophylaxis Status: Acute (6) Morbid obesity with BMI of 40.0-44.9, adult Status: Chronic (7) Hypokalemia Status: Resolved Date of admission: 07/25/17 11:26 Primary care physician: Lee Allen MD Consults: 07/24/17 08:01 Consult to Oncology Hematology [CONS] Routine Consulting Provider: Ron Osei Reason for Consult: acute PE Call Completed: Yes Hospital course: Ms. Farooq is a 76 year old female - Time Spent with Patient Total time spent providing and/or coordinating discharge services: - Constitutional Vitals: Temp Pulse Resp BP Pulse Ox 97.9 F 68 15 112/58 93 07/27/17 06:27 07/27/17 06:27 07/27/17 06:27 07/27/17 06:27 07/27/17 06:27 - Attending Attestation Patient is a 76 year old female admitted for acute respiratory distress secondary to acute b/l PE. She was started on heparin gtt and was seen by hematology. She was started on coumadin therapy with bridging with lovenox and discontinuation of heparin gtt. She responded well to therapy. Extensive education was provided in regards to Lovenox injections at home, to which patient agreed to. She has been set up for Coumadin clinic. Patient is to obtain lab work on Tuesday which will be followed by the clinical pharmacist, and patient will be educated if there are any changes in her home medication in regards to her Coumadin and Lovenox. Patient and family in agreement with this discharge plan. Patient hemodynamically stable and will be discharged with home oxygen. Case discussed with resident physician Pramod Del Rio, I agree with his documented findings, assessment, and plan, except as listed above.
== END 2017-07-27 14:40 | disposition home or self-care (01) | DRG 176 ==
LOC: 2ANU → SUATTDRO 14:26 → 2NNU 20:09 → SUATTDRO 07-25 11:26 → 2NENU 07-26 18:37
PROVIDERS: ADMIT Student in an Organized Health Care Education/Training Program; ATTEND Internal Medicine